=== PATIENT | male | born 1975 | race Caucasian/White ===

== ENCOUNTER 2021-06-09 08:56 | Emergency (ER) | payer OTHER, SELFPAY ==
[2021-06-09 09:02] VITALS: BP 134/95; PULSE 88; RESP 18; TEMP 36.4; O2SAT 100
--- NOTE | 2021-06-09 10:54 | ED.GENADULT ---
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 patient saw his primary care on Saturday for this was prescribed a muscle relaxer and had negative radiographs patient on arrival to emergency department notes that the pain is worse with activity and movement localized to the posterior shoulder notes that he had felt a pop at the time of the injury with pain radiating down to the elbow patient denies any paresthesias loss of feeling or function on arrival to emergency department patient in the room in no distress and notes that the pain is better with holding his arm above the neutral position Related Data Home Medications Medication Instructions Recorded Confirmed atorvastatin 06/09/21 Allergies Allergy/AdvReac Type Severity Reaction Status Date / Time No Known Allergies Allergy Verified 06/09/21 09:07 Review of Systems Review of Systems: All systems reviewed & are unremarkable except as noted in HPI and below PMFSH Social History Social History (Updated 06/09/21 @ 11:00 by Tarun Nicole PA-C) Smoking status: Never smoker Exam Narrative: Exam Narrative: GENERAL: Well-appearing, well-nourished, and in no acute distress. HEAD: Normocephalic, atraumatic. EYES: PERRLA and EOMI. CHEST: Clear to auscultation. No respiratory distress. No wheezes rales or rhonchi HEART: Regular rate and rhythm. No murmur heard. Normal peripheral pulses. EXTREMITIES: Tenderness of the posterior left shoulder no deformities noted normal range of motion and strength of the remainder of the extremity SKIN: Warm, dry, no rash. NEURO: No focal deficits. Alert and oriented x3. Neurovascularly intact PSYCH: Normal mood and affect. Course Course Emergency Course: Patient in the room no distress aware of case findings treatment plan and diagnosis agreeing to follow-up as instructed Vital Signs Vital signs: Vital Signs Temperature 97.6 F 06/09/21 09:02 Pulse Rate 88 06/09/21 09:02 Respiratory Rate 18 06/09/21 09:02 Blood Pressure 134/95 H 06/09/21 09:02 Pulse Oximetry 100 06/09/21 09:02 Temperature 97.6 F 06/09/21 09:02 Pulse Rate 88 06/09/21 09:02 Respiratory Rate 18 06/09/21 09:02 Blood Pressure 134/95 H 06/09/21 09:02 Pulse Oximetry 100 06/09/21 09:02 Medical Decision Making MDM Narrative Medical decision making narrative: Patients injury or pain is consistent with musculoskeletal etiology. No signs of neurological or vascular compromise on exam. Compartments and tisues are soft without signs of compartment syndrome. Pain is felt appropriate for further evaluation on an outpatient basis. Vital Signs Vital Signs: Vital Signs Temperature 97.6 F 06/09/21 09:02 Pulse Rate 88 06/09/21 09:02 Respiratory Rate 18 06/09/21 09:02 Blood Pressure 134/95 H 06/09/21 09:02 Pulse Oximetry 100 06/09/21 09:02 Temperature 97.6 F 06/09/21 09:02 Pulse Rate 88 06/09/21 09:02 Respiratory Rate 18 06/09/21 09:02 Blood Pressure 134/95 H 06/09/21 09:02 Pulse Oximetry 100 06/09/21 09:02 Discharge Plan Discharge Clinical Impression: Acute pain of left shoulder Patient Disposition: Home, Self-Care Condition: Stable Instructions: Antibiotic Form, Arthralgia (ED) Additional Instructions: Follow up with your primary care provider and orthopedist within 5-7 days. Go to ER for shortness of breath, difficulty breathing, chest pain, fever/chills, weakness, nauseau/vomitting, etc. or any other concerns. Ice or heat for symptom relief Take any prescribed medications as directed. Fo
[2021-06-09 11:14] VITALS: BP 145/77; PULSE 88; RESP 16; O2SAT 100
== END 2021-06-09 11:16 | disposition home or self-care (01) ==
PROVIDERS: Emergency Provider Emergency Medicine; PCP Family Medicine
DX: M25.512 Pain in left shoulder (principal)
CPT/HCPCS: 99283

== ENCOUNTER 2023-09-12 00:32 | Day surgery (SDC) | payer OTHER, SELFPAY ==
[2023-08-29 13:51] VITALS: BMI 40.6
[2023-09-12 08:11] VITALS: BP 134/81; PULSE 81; RESP 18; TEMP 36.7; O2SAT 99; BMI 38.3
[2023-09-12] MEDS: LACTATED RINGERS 1,000 ML 150 ML IV CONT (08:46)
--- NOTE | 2023-09-12 08:56 | P.HP_ITS ---
History of Present Illness History of Present Illness Consent: Risks, benefits, and alternatives have been discussed and questions answered. Patient agrees to proceed with procedure. Chief complaint: neoplasm screening Narrative: Daniel Peralta is a 48 year old male Presents for screening colonoscopy. Patient's current weight appetite and bowel movements are normal. Patient denies abdominal pain. He has had no bleeding. Family history noncontributory. Review of Systems Review of Systems: Review of systems noncontributory. [facility] Past Medical History Medical History (Updated 09/12/23 @ 08:58 by Juan Torres MD) High cholesterol Rotator cuff tear, left Family History Family History (Updated 06/13/21 @ 13:10 by Sanjuana Adams RT(R)) Other Arthritis Depression Diabetes mellitus Heart disease High cholesterol Hypertension Social History Social History (Updated 06/13/21 @ 13:10 by Sanjuana Adams RT(R)) Smoking status: Never smoker Alcohol intake: never Drinks per week: 4 Substance use: never Substance use type: does not use Living arrangements: with family Gender identity (if verbalized by the patient): Male Spiritual care concerns: No Meds Home Medications and Allergies Home Medications Medication Instructions Recorded Confirmed Type atorvastatin 10 mg tablet 10 mg PO DAILY 06/09/21 08/29/23 History Allergies Allergy/AdvReac Type Severity Reaction Status Date / Time No Known Allergies Allergy Verified 08/29/23 13:52 Vital Signs Vital Signs - 24 hr 09/12/23 08:11 Temperature 98.1 F Pulse Rate 81 Respiratory Rate 18 Blood Pressure 134/81 Pulse Oximetry 81 L Oxygen Delivery Room Air Exam Narrative: Physical exam reveals patient to be alert. Vital signs stable. HEENT exam is unremarkable. Patient is anicteric. Lungs are clear to auscultation and percussion. Heart is without murmur or extra sounds. Abdomen bowel sounds are present soft nontender with no hepatosplenomegaly. Digital external rectal exam normal. Assessment and Plan Assessment and plan (1) Encounter for screening colonoscopy: Code(s): Z12.11 - Encounter for screening for malignant neoplasm of colon Status: Acute Assessment and Plan: Patient presents today for screening colonoscopy. He appears to be at average risk for colon polyps. Further recommendations may be given after endoscopy.
--- NOTE | 2023-09-12 09:33 | P.PNAN_ITS ---
Anes - Initial Pre Proc Eval Procedure: Operation Date: 09/12/23 09:30 Proposed Procedures p Screening Colonoscopy - Juan Torres MD Date/Time: 09/12/23 09:33 Surgeon: Juan Torres MD Pre Op Diagnosis: neoplasm screening Patient Data Age: 48 Gender: M Height: 1.93 m Weight: 142.8 kg Last Vital Signs Temp 98.1 F 09/12/23 08:11 Pulse 81 09/12/23 08:11 Resp 18 09/12/23 08:11 BP 134/81 09/12/23 08:11 Pulse Ox 81 L 09/12/23 08:11 O2 Del Method Room Air 09/12/23 08:11 Allergies Allergy/AdvReac Type Severity Reaction Status Date / Time No Known Allergies Allergy Verified 08/29/23 13:52 Home Medications Medication Instructions Recorded Confirmed Type atorvastatin 10 mg tablet 10 mg PO DAILY 06/09/21 08/29/23 History Patient hx anesthesia problems: none Family hx anesthesia problems: none Results Review: All pre-operative results and documents have been reviewed as part of the pre- operative evaluation. [facility] Past Medical History Medical History (Updated 09/12/23 @ 08:58 by Juan Torres MD) High cholesterol Rotator cuff tear, left Family History Family History (Updated 06/13/21 @ 13:10 by Sanjuana Adams, RT(R)) Other Arthritis Depression Diabetes mellitus Heart disease High cholesterol Hypertension Social History Social History (Updated 06/13/21 @ 13:10 by Sanjuana Adams, RT(R)) Smoking status: Never smoker Alcohol intake: never Drinks per week: 4 Substance use: never Substance use type: does not use Living arrangements: with family Gender identity (if verbalized by the patient): Male Spiritual care concerns: No Anes - Eval Final PreProcedure Day of Procedure 09/12/23 09:33 Patient weight: obese Heart: regular rate and rhythm Lungs: clear to auscultation Airway: Mallampati scale class II Neurological: alert and oriented Last oral intake: >/= 8 hours ASA classification: II Emergent: no Anesthetic plan: proceed Anesthesia type and monitoring: general GIVS and standard monitoring Results Review: All pre-operative results and documents have been reviewed as part of the pre- operative evaluation. Informed Consent: The patient's anesthetic plan and its attendant risks and benefits were discussed with the patient/family/POA. Questions were solicited and answers provided to the satisfaction of the patient/family/POA.
[2023-09-12 09:58] VITALS: BP 117/68; PULSE 85; RESP 14; O2SAT 98
[2023-09-12 10:08] VITALS: BP 126/72; PULSE 81; RESP 17; O2SAT 98
[2023-09-12 10:18] VITALS: BP 124/69; PULSE 78; RESP 18; O2SAT 99
== END 2023-09-12 10:23 | disposition home or self-care (01) ==
PROVIDERS: PCP Family Medicine; Visit Provider Internal Medicine Gastroenterology
PROC: 0DJD8ZZ Inspection of Lower Intestinal Tract, Via Natural or Artificial Opening Endoscopic (ICD-10-PCS; CPT 45378; principal; 2023-09-12 09:30)
DX: Z12.11 Encounter for screening for malignant neoplasm of colon (principal); D12.4 Benign neoplasm of descending colon; K64.8 Other hemorrhoids; E78.00 Pure hypercholesterolemia, unspecified; E66.9 Obesity, unspecified; Z68.38 Body mass index [BMI] 38.0-38.9, adult
CPT/HCPCS: 45385; 88305; J2704; J7120

== ENCOUNTER 2024-12-22 14:20 | Outpatient (CLI) | payer OTHER, SELFPAY ==
--- NOTE | 2024-12-22 | ECHO_ITS ---
Patient Info Name: Daniel Peralta Age: 49 years : 1975 Gender: Male Ht: 76 in Wt: 320 lbs BSA: 2.84 m2 HR: 86 bpm BP: 146 / 84 mmHg Technical Quality: Fair Exam Date: 12/22/2024 2:49 PM Exam Location: Echo Lab Patient Status: Outpatient Admit Date: 12/22/2024 Staff Ordering Physician: JanelEvangelist MD Print Developer: Jeff Rose RDCS Attending Provider: TobiasEvangelist MD Referring Physician: Janel WHITE; Exam Type: CA echo doppler color flow Study Info Indications - AORTIC ROOT DILATION Complete two-dimensional, color flow and Doppler transthoracic echocardiogram is performed. Summary 1. Complete two-dimensional, color flow and Doppler transthoracic echocardiogram is performed. 2. Left ventricular chamber dimension is normal. 3. Left ventricular systolic function is normal, estimated at 60-65%. 4. The left ventricular diastolic function is grade I diastolic dysfunction. 5. E/e' 5 is not elevated. 6. Right atrial chamber dimension is mildly enlarged. 7. No pulmonary hypertension, estimated pulmonary arterial systolic pressure is 34 mmHg. 8. The aortic root size at the sinus of Valsalva is mildly dilated at 4.3 cm. 9. The prox ascending aorta size is borderline dilated at 4.1 cm. Left Ventricle E/e' 5 is not elevated. Left ventricular chamber dimension is normal. Left ventricular systolic function is normal, estimated at 60-65%. The left ventricular diastolic function is grade I diastolic dysfunction. Right Ventricle Right ventricular systolic function is normal and with normal TAPSE 2.8 cm. Right ventricular chamber dimension is normal. Left Atria Left atrial chamber dimension is normal. Right Atria Right atrial chamber dimension is mildly enlarged. Aortic Valve The aortic valve is trileaflet. There is no aortic valve stenosis. There is no aortic valve regurgitation. Pulmonic Valve There is no pulmonic regurgitation. Mitral Valve There is no mitral valve stenosis. There is no mitral valve regurgitation. Tricuspid Valve There is no tricuspid valve regurgitation. No pulmonary hypertension, estimated pulmonary arterial systolic pressure is 34 mmHg. Pericardium/Pleural There is no pericardial effusion. Inferior Vena Cava Normal inferior vena cava with >50% collapse upon inspiration consistent with normal right atrial pressure, 5 mmHg. Aorta The aortic root size at the sinus of Valsalva is mildly dilated at 4.3 cm. The prox ascending aorta size is borderline dilated at 4.1 cm. Left Ventricular Outflow Tract Name Value Normal LVOT 2D LVOT Diameter 2.3 cm LVOT Doppler LVOT Peak Gradient 5 mmHg LVOT Mean Gradient 3 mmHg LVOT VTI 21 cm LVOT VTI/AV VTI Ratio 0.9 LVOT Stroke Volume 87 ml LVOT CO 7.2 l/min LVOT CI 2.5 l/min/m2 Pulmonic Valve Name Value Normal RVOT Doppler RVOT Peak Gradient 3 mmHg PV Doppler PV Peak Gradient 4 mmHg Mitral Valve Name Value Normal MV Doppler MV Decel Troup 466 cm/s2 MV PHT 45 ms MV Area (PHT) 4.9 cm2 4.0-5.0 MV Diastolic Function MV E Peak Velocity 73 cm/s MV A Peak Velocity 89 cm/s MV E/A 0.8 MV Decel Time 156 ms MV Annular TDI MV E/e' (Septal) 5.7 <=8.0 MV E/e' (Lateral) 5.0 <=8.0 MV E/e' (Average) 5.3 Tricuspid Valve Name Value Normal TV Regurgitation Doppler TR Peak Velocity 267 cm/s TR Peak Gradient 29 mmHg Estimated PAP/RSVP RA Pressure 5 mmHg <=5 PA Systolic Pressure 34 mmHg <36 RV Systolic Pressure 34 mmHg <36 Aorta Name Value Normal Ascending Aorta Ao Root Diameter (MM) 4.3 cm Ao Root Diam Index (MM) 1.5 cm/m2 Aortic Valve Name Value Normal AV Doppler AV Peak Velocity 121 cm/s AV Peak Gradient 6 mmHg AV Mean Gradient 4 mmHg AV VTI 24 cm AV Area (Cont Eq VTI) 3.6 cm2 >=3.0 AV Area (Cont Eq Levar) 3.8 cm2 AV Regurgitation 2D LVOT Area 4.1 cm2 Ventricles Name Value Normal LV Dimensions 2D/MM IVS Diastolic Thickness (2D) 1.0 cm 0.6-1.0 LVID Diastole (2D) 5.7 cm 4.2-5.8 LVIW Diastolic Thickness (2D) 1.6 cm 0.6-1.0 LVID Systole (2D) 3.5 cm 2.5-4.0 LVOT Diameter 2.3 cm LV Mass (2D Cubed) 335.66 g 88.00-224.00 LV Mass Index (2D Cubed) 118 g/m2 49-115 Relative Wall Thickness (2D) 0.57 LV Fractional Shortening/Ejection Fraction 2D/MM LV Fractional Shortening (2D) 39 % 25-43 LV EF (2D Teicholz) 69 % 52-72 LV Diastolic Volume (4C MOD) 183 ml LV EF (4C MOD) 63 % LV Diastolic Volume (2C MOD) 150 ml LV EF (2C MOD) 51 % LV Diastolic Volume (BP MOD) 172 ml 62-150 LV Diastolic Volume Index (BP MOD) 60 ml/m2 34-74 LV Systolic Volume (BP MOD) 72 ml 21-61 LV Systolic Volume Index (BP MOD) 25 ml/m2 11-31 LV EF (BP MOD) 58 % 52-72 LV Diastolic Length (4C) 10.3 cm LV Systolic Length (4C) 9.1 cm LV Stroke Volume (4C MOD) 115 ml Atria Name Value Normal LA Dimensions LA Dimension (MM) 3.6 cm 3.0-4.1 LA Volume (4C A-L) 59 ml LA Volume (BP A-L) 68 ml RA Dimensions RA Area (4C) 23.0 cm2 <=18.0 Report Signatures
--- OUTSIDE RECORDS SUMMARY | 2024-12-22 14:52 | XMS_ITS | Encounter Summary ---
Author Organization [facility] Address [facility] [facility] [place] [address] [place] [address] Care Team Providers Care Sack Repairer Name Role Phone Sarah Linda MD Primary Care Provider [phone] Edi Hayes MD Unavailable Jose Maria Aquino MD Primary Care Provider [phone] Encounter Details Date Type Department Care Team (Late st Contact Info) Description 02/20/2017 Abstract [facility] AT [address] [address] Charito Mercedes MA Social History Tobacco Use Types Packs/Day Years Used Date Smoking Tobacco: Never Smokeless Tobacco: Former Quit: 2000 Alcohol Use Standard Drinks/Week Comments Yes 0 (1 standard drink = 0.6 oz pur e alcohol) Sex and Gender Information Value Date Recorded Sex Assigned at Not on file Legal Sex Male 5:06 PM CDT Gender Identity Not on file Sexual Orientation Not on file documented as of this encounter Plan of Treatment Not on file documented as of this encounter Procedures Procedure Name Priority Date/Time Associated Diagnosis Comments CBC (OUTSIDE LAB) Routine 02/08/2017 COMPREHENSIVE METABOLIC PANEL Routine 02/08/2017 LIPID PANEL Routine 02/08/2017 THYROID STIM HORMONE TSH Routine 02/08/2017 documented in this encounter Results * LIPID PANEL (02/08/2017) Pathologist [facility] CHOLESTEROL 228 HDL 46 TRIGLYCERIDES 100 NON HDL CHOLESTEROL 182 LDL (CALCULATED) 162 02/08/2017 us Doc [facility] Abstract LABORATORY Final Result * THYROID STIM HORMONE, TSH (02/08/2017) [facility] TSH 1.21 02/08/2017 us Doc [facility] LABORATORY Edited Resul t - Final * (ABNORMAL) COMPREHENSIVE METABOLIC PANEL (02/08/2017) [facility] SODIUM S/P/B 141 POTASSIUM S/P/B 4.9 CO2 27 CHLORIDE S/P/B 103 GLUCOSE 102 CALCIUM S/P/B 10 BUN 17 CREATININE S/P/B 1.14 0.7 - 1.3 EGFR AFR. AMER. 93 EGFR NON-AFR. AMER. 80 ALKALINE PHOSPHATASE S/P/B 50 ALT 17 AST 15 BILIRUBIN TOTAL S/P/B 0.6 ALBUMIN S/P/B 5.1(A) 3.5 - 5.0 TOTAL PROTEIN S/P/B 7.4 GLOBULIN 2.3 02/08/2017 us Doc [facility] LABORAT[facility] Final Result * CBC (OUTSIDE LAB) (02/08/2017) [facility] WBC 4.9 HGB 15 HCT 44.1 PLT 242 02/08/2017 us Doc [facility] Abstract LAB-OUTSIDE/ABSTRACTED Final Result documented in this encounter Visit Diagnoses Not on filedocumented in this encounter Care Teams Sack Repairer Relationship Specialty Start Date End Date Sarah Linda MD PCP - General FAMILY PRACTICE 04/25/16 04/15/22 Jose Maria Aquino MD [address] [place] [address] PCP - General FAMILY PRACTICE 04/16/22 Edi Hayes MD [address] [address] Jocelyn Personal Computer Network Analyst CARDIOVASCULAR DISEASE 02/12/17 documented as of this encounter
--- OUTSIDE RECORDS SUMMARY | 2024-12-22 14:52 | XMS_ITS | Clinical Summary ---
Author Organization [facility] Address [address] [place] [address] Phone Care Team Providers Care Casting Machine Control Board Operator Name Role Phone Evangelist Islas MD Primary Care Provider Nicolas Garcia MD Unavailable Allergies No known active allergies Medications docosahexaenoic acid-epa 120-180 mg capsule Take 2,000 mg by mouth 2 (two) times a day Active multivitamin with minerals tablet Take 1 tablet by mouth daily Active TESTOSTERONE CYPIONATE, BULK, MISC Cream Active atorvastatin (LIPITOR) 10 mg tabletIndication s:Hypercholester olemia TAKE 1 TABLET BY MOUTH EVERY DAY 100 tablet 1 05/28/2024 Active testosterone micronized, bulk, 100 % powder 0 09/17/2024 Active Active Problems Problem Noted Date Diagnosed Date Aortic root dilation (CMS/HCC) 11/03/2024 Obstructive sleep apnea hypopnea, mild Morbid (severe) obesity due to excess calories 0 04/30/2024 Assessment & Plan (05/04/2024 2:30 PM CDT): BMI Follow-up includes: nutrition counseling, exercise counseling, and education provided. Palpitations 08/26/2023 Hypercholesterolemia 08/26/2023 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 08/26/2023 Establishing care with new doctor, encounter for 08/26/2023 Assessment & Plan (08/26/2023 2:33 PM CDT): A(n) initial visit to establish care has been performed today. Daniel Peralta is not up to date on screening tests. He is in need of Colon cancer screening- colonoscopy scheduled for 09/12. He is up to date on needed preventative vaccinations. We discussed healthy lifestyle habits, educational material has been given. Medications reviewed, changes documented as per the medical record and discussed with patient along with risks vs benefits. Return in 6 months Annual physical exam 06/06/2023 Dyspnea 12/16/2020 Status post placement of implantable loop record er 11/25/2016 Overview (08/26/2023): Surprise Ride Reveal LINQ model #[id number] serial #[id number] Obesity 03/05/2013 Assessment & Plan (11/03/2024 4:09 PM SUPERVISOR MOTOR VEHICLE ASSEMBLY): BMI Follow-up includes: nutrition counseling, exercise counseling, and education provided. Arthralgia of shoulder 06/02/2012 Encounters Date Type Department Care Team Description 11/16/2024 Orders Only [facility] Primary Care at [address] [id number] Evangelist Islas MD Aortic root dilation (CMS/HCC) (HCC) (Primary Dx) 11/13/2024 Telephone [facility] Primary Care at [address] [phone] denial 11/03/2024 4:00 PM SUPERVISOR MOTOR VEHICLE ASSEMBLY Office Visit [facility] Primary Care at [address] [phone] Evangelist Islas MD Hypercholesterolemia (Primary Dx); 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; Class 2 obesity due to excess calories without serious comorbidity with body mass index (BMI) of 38.0 to 38.9 in adult; Aortic root dilation (CMS/HCC) (HCC); Need for hepatitis B screening test; Need for hepatitis C screening test; Obstructive sleep apnea hypopnea, mild from Last 3 Months Immunizations Name Administration Dates Next Due Influenza, Unspecified 09/24/2024,2022,08/26/2023(Deferred: Patient Refused),11/25/2022(Deferred: Patient Refused),08/25/2022(Deferred: Patient Refused) Tdap 12/27/2013 Surgical History Surgery Date Site/Laterality Comments ROTATOR CUFF REPAIR 11/25/2021 - 11/24/2022 TONSILLECTOMY Family History Medical History Relation Name Comments Diabetes type II Father Heart disease Father Hyperlipidemia Father Arrhythmia Maternal Grandfather Bipolar disorder Mother Heart attack Paternal Grandfather Hyperlipidemia Paternal Grandfather Relation Name Status Comments Father Maternal Grandfather Mother Paternal Grandfather Social History Tobacco Use Types Packs/Day Years Used Date Smoking Tobacco: Never Smokeless Tobacco: Never Tobacco Cessation:Counseling Given: Not Answered AUDIT-C Answer Date Recorded Q1: How often do you have a drink containing alcohol? Never 08/26/2023 Q2: How many drinks containi ng alcohol do you have on a typical day when you are drinking? Patient does not drink Q3: How often do you have si x or more drinks on one occasion? Never 08/26/2023 PHQ-2 Answer Date Recorded PHQ-2 Total Score (If total score is 3 or more points, staff should administer the PHQ-9) 0 11/03/2024 Sex and Gender Information Value Date Recorded Sex Assigned at Not on file Legal Sex Male 9:32 AM SUPERVISOR MOTOR VEHICLE ASSEMBLY Gender Identity Not on file Sexual Orientation Not on file Obstetrics History Last Filed Vital Signs Vital Sign Reading Time Taken Comments Blood Pressure 118/68 11/03/2024 4:07 PM SUPERVISOR MOTOR VEHICLE ASSEMBLY Pulse 87 11/03/2024 4:07 PM SUPERVISOR MOTOR VEHICLE ASSEMBLY Temperature 36.9 ??C (98.5 ??F) 11/03/2024 4:07 PM CS T Respiratory Rate 18 11/03/2024 4:07 PM SUPERVISOR MOTOR VEHICLE ASSEMBLY Oxygen Saturation 98% 11/03/2024 4:07 PM SUPERVISOR MOTOR VEHICLE ASSEMBLY Inhaled Oxygen Concentration - - Weight 157.4 kg (347 lb) 11/03/2024 4:07 PM SUPERVISOR MOTOR VEHICLE ASSEMBLY Height 195.6 cm (6' 5 ) 11/03/2024 4:07 PM SUPERVISOR MOTOR VEHICLE ASSEMBLY Body Mass Index 41.15 11/03/2024 4:07 PM SUPERVISOR MOTOR VEHICLE ASSEMBLY Plan of Treatment Health Maintenance Due Date Last Done Comments Hepatitis C Screening 1975 Hepatitis B Screening 1994 DTaP/Tdap/Td Vaccine (2 - Td or Tdap) 12/27/2023 12/27/2013 Regular Well Visit/Exam 18-64 06/06/2024 06/06/2023 Depression Screening 11/03/2025 11/03/2024, 04/30/2024, 10/30/2023, Additional history exists Colon Cancer Screening-Colonoscopy 09/12/2033 09/12/2023, 09/12/2023 Influenza Vaccine Completed 09/24/2024, 10/16/2023 Pneumococcal vaccine <65 Aged Out No longer eligible based on patient's age to complete this topic Procedures Procedure Name Priority Date/Time Associated Diagnosis Comments COLONOSCOPY Routine 09/12/2023 from Last 3 Months or Most Recently Relevant to Health Maintenance Results * Colonoscopy (09/12/2023) Anatomical Region Laterality Modality Other Historical Provider ENDOSCOPY PROCEDURES Nika l Result from Last 3 Months or Most Recently Relevant to Health Maintenance Insurance [facility] Care Teams Casting Machine Control Board Operator Relationship Specialty Start Date End Date Evangelist Islas MD [address] [facility] [address] [place] [address] PCP - General Family Medicine 08/26/23 Nicolas Garcia MD [address] [place] [address] Consulting Physician 11/03/24
--- OUTSIDE RECORDS SUMMARY | 2024-12-22 14:52 | XMS_ITS | Clinical Summary ---
Author Organization [facility] Address [address] [place] [address]. [place] [address] [place] [address] Care Team Providers Care Publications Designer Name Role Phone Edi Hayes MD Unavailable Jose Maria Aquino MD Primary Care Provider [phone] Allergies No known active allergies Medications Multiple Vitamins-Minera ls (MULTIVITAMIN OR) Take 1 tablet by mouth daily. Active fish oil 1000 MG Cap capsule Take 2,000 mg by mouth 2 (two) times daily. Active GLUCOSAMINE-CHO NDROITIN OR Take 1 tablet by mouth daily. Active atorvastatin 10 MG tablet Take 10 mg by mouth nightly at bedtime. 03/23/2022 Active naproxen 500 MG tablet Take 500 mg by mouth as needed. 09/13/2021 Active Active Problems Problem Noted Date Diagnosed Date Dyspnea 12/16/2020 Status post placement of implantable loop record er 11/25/2016 Overview (01/25/2020): [employer] Reveal LINQ model #LNQ11 serial #[id number] Obesity 03/05/2013 Palpitations Resolved Problems Problem Noted Date Diagnosed Date Resolved Date Atypical chest pain 01/25/20 Family History Medical History Relation Comments Heart Attack Father Bipolar disorder Other Diabetes Other Heart Disease Other Relation Status Comments Father (Age 53) Mother Alive Other Social History Tobacco Use Types Packs/Day Years Used Date Smoking Tobacco: Never Smokeless Tobacco: Former Quit: 2000 Alcohol Use Standard Drinks/Week Comments Yes 0 (1 standard drink = 0.6 oz pur e alcohol) Sex and Gender Information Value Date Recorded Sex Assigned at Not on file Legal Sex Male 5:06 PM CDT Gender Identity Not on file Sexual Orientation Not on file Occupation Industry Job Start Date Job End Date Not on file Not on file Not on file Not on file Last Filed Vital Signs Vital Sign Reading Time Taken Comments Blood Pressure 143/80 08/03/2022 7:46 AM CDT Pulse 79 08/03/2022 7:46 AM CDT Temperature - - Respiratory Rate 14 08/03/2022 7:46 AM CDT Oxygen Saturation 96% 08/03/2022 7:46 AM CDT Inhaled Oxygen Concentration - - Weight 141.1 kg (311 lb) 04/16/2022 10:31 AM CDT Height 193 cm (6' 4 ) 04/16/2022 10:31 AM CDT Body Mass Index 37.86 04/16/2022 10:31 AM CDT Plan of Treatment Health Maintenance Due Date Last Done Comments Colorectal Cancer Screening Colonoscopy (10 Years) 1976 Annual Physical 1979 Hepatitis C 1994 DTaP, Tdap and Td Vaccines ( 1 - Tdap) 1995 Hepatitis B Vaccines (1 of 3 - 19+ 3-dose series) 1995 COVID-19 Vaccine (2023-2 5 season) 2024 Influenza Adult (#1) 2024 Meningococcal B Vaccine Aged Out No l onger eligible based on patient's age to complete this topic Meningococcal Vaccine Aged Out No sury jose carlos eligible based on patient's age to complete this topic Pneumococcal Vaccine: Pediat rics (0 to 5 Years) and At-Risk Patients (6 to 64 Years) Aged Out No longer eligible b ased on patient's age to complete this topic RSV Immunizations Under 20 Months Aged Out No longer eligible based on patient's age to complete this topic Medical Devices Explanted Type Area Timber Feller Device Identifier Shelf Expiration Date Model / Serial / Lot [employer]ronic Implantable Loop Recorder- [id number] Implanted:03/22 by Edi Hayes MD (Quantity not on file) Explanted:Qty: 1 on 08/03/2022 by Edi Hayes MD Implantable Loop Recorder [employer] [id number] / [id number] S / Insurance [facility] Care Teams Publications Designer Relationship Specialty Start Date End Date Jose Maria Aquino MD [address] [place] [address] PCP - General FAMILY PRACTICE 04/16/22 Edi Hayes MD [address] [address] [employer] Operation Manager CARDIOVASCULAR DISEASE 02/12/17
--- OUTSIDE RECORDS SUMMARY | 2024-12-22 14:52 | XMS_ITS | Referral Summary ---
Author Organization [facility] Address [address] [facility] [address] [place] [phone] Phone Care Team Providers Care Metal Hardener Name Role Phone Evangelist Islas MD Primary Care Provider [phone] Nicolas Garcia MD Unavailable [phone] Encounters Date Type Department Care Team Description 11/16/2024 Orders Only [facility] [address] [id number] Evangelist Islas MD Aortic root dilation (CMS/HCC) (HCC) (Primary Dx) 11/13/2024 Telephone [facility] [address] [address] denial 11/03/2024 4:00 PM PRINCIPAL CONSULTANT Office Visit [facility] [address] [address] Evangelist Islas MD Hypercholesterolemia (Primary Dx); 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; Class 2 obesity due to excess calories without serious comorbidity with body mass index (BMI) of 38.0 to 38.9 in adult; Aortic root dilation (CMS/HCC) (HCC); Need for hepatitis B screening test; Need for hepatitis C screening test; Obstructive sleep apnea hypopnea, mild from Last 3 Months Allergies No known active allergies Medications docosahexaenoic [...] implantable loop record er 11/25/2016 Overview (08/26/2023): [employer] Reveal LINQ model #LNQ11 serial #[id number] Obesity 03/05/2013 Assessment & Plan (11/03/2024 4:09 PM PRINCIPAL CONSULTANT): BMI Follow-up includes: nutrition counseling, exercise counseling, and education provided. Arthralgia of shoulder 06/02/2012 Immunizations Name Administration Dates Next Due Influenza, Unspecified 09/24/2024,2022,08/26/2023(Deferred: Patient Refused),11/25/2022(Deferred: Patient Refused),08/25/2022(Deferred: Patient Refused) Tdap 12/27/2013 Social History Tobacco Use Types Packs/Day Years [...] on file Legal Sex Male 9:32 AM PRINCIPAL CONSULTANT Gender Identity Not on file Sexual Orientation Not on file Last Filed Vital Signs Vital Sign Reading Time Taken Comments Blood Pressure 118/68 11/03/2024 4:07 PM PRINCIPAL CONSULTANT Pulse 87 11/03/2024 4:07 PM PRINCIPAL CONSULTANT Temperature 36.9 ??C (98.5 ??F) 11/03/2024 4:07 PM CS T Respiratory Rate 18 11/03/2024 4:07 PM PRINCIPAL CONSULTANT Oxygen Saturation 98% 11/03/2024 4:07 PM PRINCIPAL CONSULTANT Inhaled Oxygen Concentration - - Weight 157.4 kg (347 lb) 11/03/2024 4:07 PM PRINCIPAL CONSULTANT Height 195.6 cm (6' 5 ) 11/03/2024 4:07 PM PRINCIPAL CONSULTANT Body Mass Index 41.15 11/03/2024 4:07 PM PRINCIPAL CONSULTANT Plan of Treatment Not on file Procedures Procedure Name Priority Date/Time Associated Diagnosis Comments COLONOSCOPY Routine 09/12/2023 from Last 3 Months or Most Recently Relevant to Health Maintenance Results * Colonoscopy (09/12/2023) Anatomical Region Laterality Modality Other us Historical Provider ENDOSCOPY PROCEDURES Nika l Result from Last 3 Months or Most Recently Relevant to Health Maintenance Insurance [facility] Care Teams Metal Hardener Relationship Specialty Start Date End Date Evangelist Islas MD [address] [facility] [address] [place] [address] PCP - General Family Medicine 08/26/23 Nicolas Garcia MD [address] [place] [address] Consulting Physician 11/03/24
--- OUTSIDE RECORDS SUMMARY | 2024-12-22 14:52 | XMS_ITS | Continuity of Care Document ---
Author Organization [facility] Address [facility] [place] [address] Phone Care Team Providers Care Sack Department Supervisor Name Role Phone Mackenzie Arreola OD Unavailable Unavailable Allergies, Adverse Reactions, Alerts Substance Reaction Status Criticality ibuprofen Active No Information aspirin Active No Information Medications Medication Instructions Dosage Effective Dates (start - stop) Status Comments DUPIXENT PEN (unknown strength) inject by subcutaneous route every 2 weeks in the abdomen, thigh, or upper arm rotating injection sites Not Available - Active Sudafed 30 mg tablet take 2 tablet by oral route every 6 hours as needed 60 MG - Active OMEGA 3-6-9 (unknown strength) Not Available - Active VITAMIN D3 (unknown strength) Not Available - Active LUTEIN (unknown strength) Not Available - Active NEXIUM (unknown strength) take 1 capsule by oral route every day Not Available - Active Zyrtec 10 mg capsule - Active Procedures Procedure Date EYE EXAM & TREATMENT, Est, Comprehensive Ophthalmic Dx Testing Retina Refraction With Rx [employer] SelfPay Screening EYE EXAM & TREATMENT, Est, Comprehensive Ophthalmic Dx Testing Retina Refraction With Rx EYE EXAM & TREATMENT, Est, Comprehensive Ophthalmic Dx Testing Retina Refraction With Rx EYE EXAM & TREATMENT, Est, Comprehensive REFRACTION EYE EXAM & TREATMENT, Est, Comprehensive REFRACTION EYE EXAM & TREATMENT, Est, Comprehensive Ophthalmic Dx Testing Retina REFRACTION EYE EXAM & TREATMENT, Est, Comprehensive REFRACTION Ophthalmic Dx Testing Retina EYE EXAM & TREATMENT, Est, Comprehensive REFRACTION Fundus Photo No Charge OCT Retinal Segment 6 EYE EXAM & TREATMENT, Est, Comprehensive Ophthalmic Dx Testing Retina Fundus Photo EYE EXAM, NEW PATIENT REFRACTION Fundus Photo Advance Directives Directive Yes / No Effective Date File Name No Information Encounters Encounter Description Practice Location Reason(s) For Visit Diagnoses Date Provider Providers Copied on Encounter [facility], [address] [place] [address], [id number] , tel: [phone] [facility] 1 yr Cataracts (chief complaint) Dry Eyes OU (chief complaint) Drusen OU (chief complaint) Bilateral combined forms of age-related cataractsDry eye syndrome of bilateral lacrimal glandsDrusen (degenerative) of macula, bilateralEncounter for screening, unspecified Jul- 4 Elba Mann. [address], [place], [id number], [place]. tel:[phone] Referring Provider: Mackenzie Acosta, [address] [place], [address] . tel:[phone] [facility], [address] [place] [address], [id number] , tel:[phone] [facility] f/u cataracts (chief complaint) Drusen (chief complaint) dry eyes (chief complaint) Cataract, cortical, bilateralDrusen (degenerative) of macula, bilateralDry eye syndrome of bilateral lacrimal glands Sep- 3 Elba Mann. [address], [place], [id number], [place]. tel:[phone] Specialist : Kayley Escalante, [address] [facility] [place], [address]. [phone] erring Provider: Mackenzie Acosta, [address] [facility], [place], [address] . tel:[phone] [facility], [address] [place] [address], [id number] , tel: [phone] [facility] Macular Drusen OU (chief complaint) Cataracts OU (chief complaint) Drusen (degenerative) of macula, bilateralCombined forms of age-related cataract, bilateralAllergies , bilateralDry eye syndrome of bilateral lacrimal glandsCortical age-related cataract, bilateral Apr-0 2 Elba Mann. [address] [facility], [place], [place], [id number], [place]. tel:[phone] Referring Provider: Luke العلي, [address] [place] [address], [id number] . tel:[phone] [facility], [address] [place] [address], [id number] , [place] tel: [phone] [facility] Drusen OS (chief complaint) Drusen (degenerative) of macula, bilateralCataract, cortical, bilateralDry eye syndrome, bilateralAllergies , bilateral Apr-1 1 Elba Mann. [address] [facility], [place], [place], [id number], [place]. tel:[phone] Referring Provider: Mackenzie Acosta, [address] [facility], [place], [address] . tel:[phone] [facility], [address] [place] [address], [id number] , [place] tel: [phone] [facility] f/u Drusen OS (chief complaint) Drusen (degenerative) of macula, left eye 0 Elba Mann. [address] [facility], [place], [place], [id number], [place]. tel:[phone] Referring Provider: Luke العلي, [address] [place] [address], [id number] . tel:[phone] [facility], [address] [place] [address], [id number] , tel: [phone] [facility] F/U Cataracts (chief complaint) F/U Drusen (chief complaint) Bilateral combined forms of age-related cataractsDrusen (degenerative) of macula, left eye Oct-2 5-201 8 Elba Mann. [address], [place], [place], [id number], [place]. tel:[phone] Referring Provider: Mackenzie Acosta, [address], [place], [address] . tel:[phone] [facility], [address] [place] [address], [id number] , tel: [phone] [facility] F/U Cataracts (chief complaint) F/U Drusen (chief complaint) Combined forms of age-related cataract, bilateralDrusen (degenerative) of macula, left eye Sep-2 9 7 Elba Mann. [address], [place], [place], [id number], [place]. tel:[phone] Referring Provider: Mackenzie Acosta, [address], [place], [address] . tel:[phone] [facility], [address] [place] [address], [id number] , tel: [phone] [facility] Cataract (chief complaint) redness and itching (chief complaint) Drusen (chief complaint) Bilateral post subcapsular polar age-related cataractsDry eye syndrome of bilateral lacrimal glandsDrusen (degenerative) of macula, left eye Sep-2 3-201 6 Elba Mann. [address], [place], [place], [id number], [place]. tel:[phone] Referring Provider: Maceknzie Acosta, [address], [place], [address] . tel:[phone] [facility], [address] [place] [address], [id number] , tel: [phone] [facility] Macular DrusenDry Eye SyndromeCAT, Senile PSC 5 Elba Mann. [address], [place], [id number], [place]. tel:[phone] Referring Provider: Mackenzie Acosta, [address] [place], [address] . tel:[phone] [facility], [address] [place] [address], [id number] , tel: [phone] [facility] Posterior subcapsular polar senile cataractTear film insufficiency, unspecifiedDrusen (degenerative) of retina 4 [facility]aph[facility] Butler. [address] [place] [address], [id number], . tel:[phone] Referring Provider: Luke العلي, [address] [place] [address], [id number] . tel:[phone] Family History Family Member Type Diagnosis Age At Onset Mother Problem (finding) Father Problem (finding) Mother Problem (finding) cataract Payers Payer name Insurance type Covered constitution party ID Nieves syed(s) [facility] [id number] Social History Type Description Quantity Date Captured Comments Alcohol Use Details No Caffeine Use Details Unknown Tobacco Use Status Current non-smoker Smoking Status Never smoker Non-Smoking Tobacco Use Details : No Details Available : No Details Available Sex Male Vital Signs Date / Time: Height Weight BMI Pulse Rate Blood Pressure Temperature Respiratory Rate Body Surface Area Head Circumference Head Circ. Percentile Wt./Daniel. Percentile BMI percentile Pulse Ox Inhaled Ox 1:11 PM 66.00 in 81.647 kg (180.00 lbs) 29.0 5 kg/m eter (2) Chief Complaint And Reason For Visit From encounter dated '08/21/2024 12:45'. 1 yr Cataracts (chief complaint). Description: The 49 year old patient presents for evaluation of 1yr Cataracts. Pt's distance is pretty good. Pt's near vision is where he is having a lot of trouble and that's why he has to use his OTC Readers. Dry Eyes OU (chief complaint). Description: The patient is present for evaluation of Dry Eyes OU. No pain, just very dry often. Pt is using OTC Systane Ultra 1 gtt OU a couple times a week. Drusen OU (chief complaint). Description: The patient is present for evaluation of Drusen OU. Pt denies having any distortion. MAC OCT per Dr. Arreola. Reason For Referral Reason For Referral No Information Plan Of Treatment Date Type Action Status Appointment Daniel Peralta BOOKED History Of Present Illness Encounter Date Complaint History Of Prese nt Illness 1 yr Cataracts The 49 year old patient presents for evaluation of 1 yr Cataracts. Pt's distance is pretty good. Pt's near vision is where he is having a lot of trouble and that's why he has to use his OTC Readers. Dry Eyes OU The patient is p resent for evaluation of Dry Eyes OU. No pain, just very dry often. Pt is using OTC Systane Ultra 1 gtt OU a couple times a week. Drusen OU The patient is p resent for evaluation of Drusen OU. Pt denies having any distortion. MAC OCT per Dr. Arreola. f/u cataracts The 48 year old client presents for evaluation of f/u cataracts in the right eye and left eye. PT states DVA is pretty clear, he does notice he has to use his readers more lately and struggles with small print if there is not much light. He does notice some glare when he drives at night with really bright headlights. Drusen The patient is p resent for evaluation of Drusen. Pt does not notice any wavy or distorted VA. PT here for a MAC OCT per Dr Arreola. dry eyes The patient is p resent for evaluation of dry eyes. PT states he feels like his eyes get dry but when he uses his drops it helps clear up his Vision. AT QD OU. Macular Drusen OU The 46 year ol d male presents for evaluation of Macular Drusen OU/ Mac OCT OU performed today. Pt denies any distortion but states it's getting a little harder to read up close without good lighting. Cataracts OU The patient is p resent for evaluation of Cataracts OU. Pt states distance VA is doing good in both eyes. Denies any trouble seeing to drive at night. Doesn't wear glasses for distance or near Drusen OS The 45 year old male presents for evaluation of Drusen OS, HX of myopia ou, hx of lasik ou. Pts vision is good distance and near. Does not wear any glasses. No distortion at near. More difficult to see in low lighting. Has some constant itching and irritation during allergy season. Pt has used a couple of different otc allergy drops, and systane. f/u Drusen OS The patient is p resent for evaluation of f/u Drusen OS. Pt with hx LASIK OU, vision continues to do great, no major changes or decrease in vision. Pt denies ever noticing any distortions, curves or waves in vision. Pt is taking some eye vitamins, not sure of names. Denies any pain or discomfort. F/U Drusen The patient is p resent for evaluation of F/U Drusen in the right eye and left eye. Pt denies any double or distorted vision. Pt is not taking any eye vitmains. Using some Allergy AT PRN for itching. F/U Cataracts The 43 year old male with HX of LASIK OU in 2012 presents for evaluation of F/U Cataracts in the right eye and left eye. Pt states he has not noticed any major changes in his vision since his last visit. Denies christal pain or discomfort. F/U Cataracts The 42 year old male presents for evaluation of F/U Cataracts in the right eye and left eye. Pt states he has not noticed any changes in vision since last visit. Still seeing well at a distance and near vision. He is still taking Prednisone and an antibiotic for the cold. He has not gotten injection of steriod in a couple of years, would get it because of Psoriasis. F/U Drusen The patient is p resent for evaluation of F/U Drusen in the left eye. Pt denies any eye pain or discomfort. No double VA noticed or distortion. Still uses Allergy Drops PRN OU, but not taking any eye vitamins. Drusen The patient is p resent for evaluation of Drusen in the left eye. Pt says this was noticed since the age of 21. MAC photos and OCT per Dr. Arreola. redness and itching The patient is present for evaluation of redness and itching in the right eye and left eye. Pt is using allergy gtts fo this PRN. Cataract The 41 year old male with HX of Myopia and Astigmatism presents for evaluation of Cataract in the right eye and left eye. Pt using jail steroid cream for Eczema. Pt states he hasn't noticed a change in his vision at near or far since his LASIK OU both for distance in 2012 in [place]. Pt is using allergy eyedrops PRN. Functional Status Date Functional Assessmen t No Information Instructions Date Instruction Additional Infor mation Impression/Plan Related to Bilat eral combined forms of age-related cataracts Impression/Plan Related to Dry e ye syndrome of bilateral lacrimal glands Impression/Plan Related to Druse n (degenerative) of macula, bilateral Impression/Plan Related to Druse n (degenerative) of macula, bilateral Impression/Plan Related to Catar act, cortical, bilateral Impression/Plan Related to Dry e ye syndrome of bilateral lacrimal glands 1 year follow up Darwin sen/Cataracts OU with Dr. Arreola - REMYATE Related to Drusen (degenerative) of macula, bilateral Impression/Plan Related to Druse n (degenerative) of macula, bilateral Impression/Plan Related to Combi mary anne forms of age-related cataract, bilateral Impression/Plan Related to Aller gies, bilateral Impression/Plan Related to Dry e ye syndrome of bilateral lacrimal glands Impression/Plan Related to Catar act, cortical, bilateral Impression/Plan Related to Dry e ye syndrome, bilateral Impression/Plan Related to Aller gies, bilateral Impression/Plan Related to Druse n (degenerative) of macula, bilateral Impression/Plan Related to Druse n (degenerative) of macula, left eye Oct- Impression/Plan - Th is is a normal aging change of the lens inside the eye. No treatment currently recommended due to VA level. Patient will monitor vision changes and contact us with any decrease in vision, will re-evaluate cataract on return visit. New glasses MRx given. Related to Bilateral combined forms of age-related cataracts Aug- Impression/Plan - Th ere are a few yellow waxy spots in the back of the eye. This is an aging change inside the eye. Will get an OCT today and monitor yearly. Related to Drusen (degenerative) of macula, left eye Oct- Follow up - 1 year d ilate for Drusen OS/cataracts with Dr. Arreola 1 year OC F/U Catara cts/Drusen OS with Dr. Arreola Related to Combined forms of age-related cataract, bilateral Follow up - 1 year O C F/U Cataracts/Drusen OS with Dr. Arreola Related to Combined forms of age-related cataract, bilateral Impression/Plan - Pt has cataracts. No treatment currently recommended due to VA level. Patient will monitor vision changes and contact us with any decrease in vision, will re-evaluate cataract on return visit. New glasses MRx given. Related to Combined forms of age-related cataract, bilateral Impression/Plan - St able-Will continue to monitor through regular yearly exams. Related to Drusen (degenerative) of macula, left eye 1 year OC MAC OC f/u Cataracts, Drusen OS and Dry eye wtih Dr. Arreola Related to Drusen (degenerative) of macula, left eye Impression/Plan - Ov erall nothing dangerous seen today. Eyes appear healthy with dilated exam. Cataracts present in both eyes but not affecting vision at this time. Will continue to monitor. Related to Bilateral post subcapsular polar age-related cataracts Impression/Plan - Dr peralta present OU. Can continue using Allergy drops for itching and AT. Related to Dry eye syndrome of bilateral lacrimal glands Follow up - 1 year O C MAC OC f/u Cataracts, Drusen OS and Dry eye wtih Dr. Arreola Related to Drusen (degenerative) of macula, left eye Impression/Plan - Dr fragoso present but unchanged from last visit. Advised pt to monitor for any distortion when reading. Will continue to monitor yearly. Related to Drusen (degenerative) of macula, left eye Cataract, PSC, OU(Hi gh Dose Steriod Injections d/2 Psoriasis) - Explained to pt that sometimes high dose of steriods can sometimes cause cataracts. Will continue to monitor for any changes. No need for treatment at this time. No need for gls. Related to Cataract, PSC Dry Eye Syndrome, OU - Will have pt continue using AT just as needed for dryness. Related to Dry Eye Syndrome Drusen, OS (-) Fhx - Overall nothing dangerous seen today. No signs of glaucoma. Vision is doing well. Discussed diagnosis with pt and will have him monitor vision with amsler grid. If any wavy lines, missing or blurry vision please contact office immediately. Will get OCT and MAC photos for documentation. Related to Drusen - 1 yr OC with Fundu s photos and MAC OCT with Dr. Arreola Related to Drusen Myopiahx of LASIK - DFE today: Over all eyes are healthy, looks like they did a good job on his LASIK. Dry Eyes - He does h ave some dry eyes, Restasis is a good medication but requires some commitment BID OU for best results vs AT. - [address] Rocio costa PSC OU - Mild PSC ca taract lens changes. May be years before it requires treatment. Drusen OSPhoto today - mild, drusen OS. Would get photo of this today. Assessments Type Assessment Date assessment Bilateral combined forms of age- related cataracts impression Bilateral combined forms of age- related cataracts: H25.813 assessment Dry eye syndrome of bilateral la crimal glands impression Dry eye syndrome of bilateral la crimal glands: H04.123 assessment Drusen (degenerative) of macula, bilateral impression Drusen (degenerative) of macula, bilateral: H35.363 Patient Care Teams Name Effective Dates (start - stop) Status Members No Information
--- OUTSIDE RECORDS SUMMARY | 2024-12-22 14:52 | XMS_ITS | Encounter Summary ---
Author Organization [facility] Address [address] [place] [address]. [place] [address] [place] [address] Care Team Providers Care Swiss Machinist Name Role Phone Edi Hayes MD Unavailable Jose Maria Aquino MD Primary Care Provider [phone] Encounter Details Date Type Department Care Team (Late st Contact Info) Description 12/24/2022 [email or web address] Formerly Named [facility] Patient Accounts [address] [place] [address] [facility] Provider Monthly Credit Card Payment Social History Tobacco Use Types Packs/Day Years [...] file Not on file Not on file documented as of this encounter Plan of Treatment Not on file documented as of this encounter Visit Diagnoses Not on filedocumented in this encounter Care Teams Swiss Machinist Relationship Specialty Start Date End Date Jose Maria Aquino MD [address] [place] [address] PCP - General FAMILY PRACTICE 04/16/22 Edi Hayes MD [facility]. [id number] [place] [address] [facility] CARDIOVASCULAR DISEASE 02/12/17 documented as of this encounter
== END 2024-12-22 14:21 | disposition home or self-care (01) ==
PROVIDERS: PCP Family Medicine; Visit Provider Family Medicine
DX: I77.810 Thoracic aortic ectasia (principal)
CPT/HCPCS: 93306